=== PATIENT | female | born 1955 | race Caucasian/White ===

== ENCOUNTER 2020-06-24 15:06 | Emergency (ER) | payer MEDICARE ==
[~2020-06-24] VITALS: Ht 160 cm; Wt 84.1 kg
[2020-06-24 15:13] VITALS: Ht 160 cm; Wt 84.1 kg
[2020-06-24] MEDS ORDERED: GLEEVEC100 MG PO (15:14)
[2020-06-24] MEDS ORDERED: K-DUR20 MEQ PO (15:15)
[2020-06-24] MEDS ORDERED: LEXAPRO20 MG PO (15:15)
[2020-06-24] MEDS ORDERED: ALDACTONE50 MG PO (15:16)
[2020-06-24] MEDS ORDERED: FUROSEMIDE40 MG PO (15:16)
[2020-06-24] MEDS ORDERED: PLAVIX75 MG PO (15:16)
[2020-06-24] MEDS ORDERED: LIPITOR80 MG PO (15:16)
[2020-06-24 15:49] LABS: BASOPHILS 0.3 % (0-2); HEMATOCRIT 37.1 % (36.0-48.0); HEMOGLOBIN 11.9 g/dL (12-16); IMMATURE GRANULOCYTES 0.2 % (0-5); LYMPHOCYTES 20.3 % (15-50); MCHC 32.1 g/dL (31.0-37.0); MCV 99.7 fL (80.0-100.0); MEAN PLATELET VOLUME 9.7 fL (7.4-10.4); MONOCYTES 5.7 % (2-11); NEUTROPHILS 70.5 % (40-80); PLATELET COUNT 232 10x3/uL (130-400); RBC 3.72 10x6/uL (4.00-5.40); RDW 13.2 % (11.5-14.5); WBC 6.7 10x3/uL (4.8-10.8)
[2020-06-24 15:58] LABS: ANION GAP 8.8 mmol/L (8-16); CALCIUM 9.1 mg/dL (8.5-10.1); CARBON DIOXIDE 32.3 mmol/L (21.0-32.0); CREATININE - SERUM 1.5 mg/dL (0.6-1.3); POTASSIUM - SERUM 4.1 mmol/L (3.5-5.1)
[2020-06-24 16:05] LABS: ALBUMIN 3.8 g/dL (3.4-5.0); BILIRUBIN - TOTAL 0.56 mg/dL (0.2-1.3); PROTEIN - SERUM 7.6 g/dL (6.4-8.2)
[2020-06-24 16:06] LABS: BILIRUBIN NEGATIVE (NEGATIVE); GLUCOSE NEGATIVE (NEGATIVE); KETONE NEGATIVE (NEGATIVE); NITRITE NEGATIVE (NEGATIVE); UROBILINOGEN NORMAL (NORMAL)
[2020-06-24] MEDS ORDERED: FLOMAX0.4 MG PO (17:51)
[2020-06-24] MEDS ORDERED: HYDROCODON-ACE1 EAC7 PO (17:51)
[2020-06-24 18:01] VITALS: BP 135/79
== END 2020-06-24 18:01 | disposition home or self-care (01) ==
LOC: D.ER 15:06
PROVIDERS: Family Medicine
DX: N20.0 Calculus of kidney (principal); N28.1 Cyst of kidney, acquired; R79.89 Other specified abnormal findings of blood chemistry; I10 Essential (primary) hypertension; R31.9 Hematuria, unspecified; R35.0 Frequency of micturition